=== PATIENT | male | born 1970 | race Caucasian/White ===

== ENCOUNTER 2017-06-04 20:48 | Emergency (ER) | payer BC ==
[2017-06-04] MEDS ORDERED: Aspirin 81 MG Tab.Chew PO ONE (20:56)
[2017-06-04] MEDS ORDERED: LORazepam 2 MG/ML SDV IVPUSH ONE (20:56)
[2017-06-04] MEDS ORDERED: Sodium Chloride 0.9% 1,000 ML IV ONE (20:56)
--- NOTE | 2017-06-04 20:57 | EDM.PDOC ---
ED HPI GENERAL MEDICAL PROBLEM - General Stated Complaint: CHEST PAIN Time Seen by Provider: 06/04/17 20:56 Source of Information: Reports: Patient - History of Present Illness INITIAL COMMENTS - FREE TEXT/NARRATIVE: HISTORY AND PHYSICAL: History of present illness: [Patient with history of anxiety arrives via EMS with left-sided reproducible chest pain rated 5 out of 10] not associated with shortness of breath or diaphoresis can reproduce pain with palpation of left lower rib margin as well as movement of the left arm. There is also tenderness over left deltoid and infraspinatus. No fever nausea vomiting chills sweats no shortness breath headache dizziness palpitation bowel or urine symptoms Review of systems: As per history of present illness and below otherwise all systems reviewed and negative. Past medical history: As per history of present illness and as reviewed below otherwise noncontributory. Surgical history: As per history of present illness and as reviewed below otherwise noncontributory. Social history: No reported history of drug or alcohol abuse. Family history: As per history of present illness and as reviewed below otherwise noncontributory. Physical exam: HEENT: Atraumatic, normocephalic, pupils reactive, negative for conjunctival pallor or scleral icterus, mucous membranes moist, throat clear, neck supple, nontender, trachea midline. Lungs: Clear to auscultation, breath sounds equal bilaterally, chest nontender. Heart: S1S2, regular, negative for clicks, rubs, or JVD. Abdomen: Soft, nondistended, nontender. Negative for masses or hepatosplenomegaly. Negative for costovertebral tenderness. Pelvis: Stable nontender. Genitourinary: Deferred. Rectal: Deferred. Extremities: Atraumatic, negative for cords or calf pain. Neurovascular unremarkable. Neuro: Awake, alert, oriented. Cranial nerves II through XII unremarkable. Cerebellum unremarkable. Motor and sensory unremarkable throughout. Exam nonfocal. Diagnostics: [Lab as below EKG Chest 1 view ] Therapeutics: []1 L normal saline bolus Ativan 1 mg IV Aspirin 324 mg chewable Insulin 10 mg IV Metformin 500 mg by mouth twice a day #60 no refill Lisinopril 20 mg by mouth daily #30 no refill Ativan 0.5 mg by mouth twice a day when necessary anxiety #10 no refill Impression: Anxiety about health [Reproducible chest wall pain/muscle spasm Hyperglycemia/new onset diabetes] Definitive disposition and diagnosis as appropriate pending reevaluation and review of above. Left Chest Pain Score (Numeric/FACES): 5 - Related Data Allergies Allergy/AdvReac Type Severity Reaction Status Date / Time No Known Allergies Allergy Verified 06/04/17 20:58 Home Meds: Home Meds Sertraline HCl [Zoloft] 50 mg PO DAILY 03/10/14 [History] Social & Family History - Tobacco Use Smoking Status *Q: Never Smoker Second Hand Smoke Exposure: No - Alcohol Use Days Per Week of Alcohol Use: 0 - Recreational Drug Use Recreational Drug Use: No ED ROS GENERAL - Review of Systems Review Of Systems: ROS reveals no pertinent complaints other than HPI. ED EXAM, GENERAL - Physical Exam Exam: See Below Course - Vital Signs Last Recorded V/S: Last Vital Signs Temp 97.8 F 06/04/17 20:55 Pulse 92 06/04/17 21:36 Resp 14 06/04/17 21:36 BP 136/96 H 06/04/17 21:36 Pulse Ox 90 L 06/04/17 21:36 - Orders/Labs/Meds Orders: Active Orders 24 hr Category Date Time Status EKG Documentation Completion [RC] STAT Care 06/04/17 20:56 Active Chest 1V Frontal [CR] Stat Exams 06/04/17 20:56 Taken Labs: Laboratory Tests 06/04/17 06/04/17 06/04/17 Range/Units 21:11 21:11 21:11 WBC 7.57 (4.0-11.0) K/uL RBC 5.57 (4.50-5.90) M/uL Hgb 17.0 (13.0-17.0) g/dL Hct 47.4 (38.0-50.0) % MCV 85.1 (80.0-98.0) fL MCH 30.5 (27.0-32.0) pg MCHC 35.9 (31.0-37.0) g/dL RDW Std Deviation 41.6 (28.0-62.0) fl RDW Coeff of Tono 14 (11.0-15.0) % Plt Count 176 (150-400) K/uL MPV 10.40 (7.40-12.00) fL Neut % (Auto) 55.9 (48.0-80.0) % Lymph % (Auto) 32.8 (16.0-40.0) % [place] % (Auto) 7.8 (0.0-15.0) % Eos % (Auto) 3.2 (0.0-7.0) % Baso % (Auto) 0.3 (0.0-1.5) % Neut # (Auto) 4.2 (1.4-5.7) K/uL Lymph # (Auto) 2.5 H (0.6-2.4) K/uL [place] # (Auto) 0.6 (0.0-0.8) K/uL Eos # (Auto) 0.2 (0.0-0.7) K/uL Baso # (Auto) 0.0 (0.0-0.1) K/uL Nucleated RBC % 0.0 /100WBC Nucleated RBCs # 0 K/uL Sodium 135 L (136-146) mmol/L Potassium 3.8 (3.5-5.1) mmol/L Chloride 102 (98-110) mmol/L Carbon Dioxide 21 (21-31) mmol/L BUN 13 (6.0-23.0) mg/dL Creatinine 1.2 (0.6-1.5) mg/dL Est Cr Clr Drug Dosing TNP Estimated GFR (MDRD) > 60.0 ml/min Glucose 381 H (60-110) mg/dL POC Glucose (60-110) mg/dL Calcium 9.6 (8.8-10.8) mg/dL Total Bilirubin 0.7 (0.1-1.5) mg/dL AST 15 (5-40) IU/L ALT 34 (8-54) IU/L Alkaline Phosphatase 99 (40-150) Creatine Kinase 50 (9-236) IU/L CK-MB (CK-2) 1.0 (0-6.6) ng/ml Troponin I < 0.10 (0.0-0.29) NG/ML Total Protein 7.5 (6.0-8.0) g/dL Albumin 3.7 (3.5-5.0) g/dL Globulin 3.8 H (2.0-3.5) g/dL Albumin/Globulin Ratio 1.0 L (1.3-2.8) Amylase 41 (10-90) U/L Lipase 42 (7-80) U/L 06/04/17 Range/Units 22:53 WBC (4.0-11.0) K/uL RBC (4.50-5.90) M/uL Hgb (13.0-17.0) g/dL Hct (38.0-50.0) % MCV (80.0-98.0) fL MCH (27.0-32.0) pg MCHC (31.0-37.0) g/dL RDW Std Deviation (28.0-62.0) fl RDW Coeff of Tono (11.0-15.0) % Plt Count (150-400) K/uL MPV (7.40-12.00) fL Neut % (Auto) (48.0-80.0) % Lymph % (Auto) (16.0-40.0) % [place] % (Auto) (0.0-15.0) % Eos % (Auto) (0.0-7.0) % Baso % (Auto) (0.0-1.5) % Neut # (Auto) (1.4-5.7) K/uL Lymph # (Auto) (0.6-2.4) K/uL [place] # (Auto) (0.0-0.8) K/uL Eos # (Auto) (0.0-0.7) K/uL Baso # (Auto) (0.0-0.1) K/uL Nucleated RBC % /100WBC Nucleated RBCs # K/uL Sodium (136-146) mmol/L Potassium (3.5-5.1) mmol/L Chloride (98-110) mmol/L Carbon Dioxide (21-31) mmol/L BUN (6.0-23.0) mg/dL Creatinine (0.6-1.5) mg/dL Est Cr Clr Drug Dosing Estimated GFR (MDRD) ml/min Glucose (60-110) mg/dL POC Glucose 206 H (60-110) mg/dL Calcium (8.8-10.8) mg/dL Total Bilirubin (0.1-1.5) mg/dL AST (5-40) IU/L ALT (8-54) IU/L Alkaline Phosphatase (40-150) Creatine Kinase (9-236) IU/L CK-MB (CK-2) (0-6.6) ng/ml Troponin I (0.0-0.29) NG/ML Total Protein (6.0-8.0) g/dL Albumin (3.5-5.0) g/dL Globulin (2.0-3.5) g/dL Albumin/Globulin Ratio (1.3-2.8) Amylase (10-90) U/L Lipase (7-80) U/L Meds: Medications Discontinued Medications Generic Name Dose Route Start Last Admin Trade Name Russell PRN Reason Stop Dose Admin Aspirin 324 mg 06/04/17 20:56 06/04/17 21:33 Aspirin PO 06/04/17 20:57 324 mg ONETIME ONE Administration Sodium Chloride 1,000 mls @ 999 mls/hr 06/04/17 20:56 06/04/17 21:34 Normal Saline IV 06/04/17 21:56 999 mls/hr STAT ONE Administration Insulin Human Regular 10 unit 06/04/17 22:05 06/04/17 22:28 Novolin R IVPUSH 06/04/17 22:06 10 units ONETIME ONE Administration Protocol Lorazepam 1 mg 06/04/17 20:56 06/04/17 21:34 Ativan IVPUSH 06/04/17 20:57 1 mg ONETIME ONE Administration Departure - Departure Time of Disposition: 23:34 Disposition: Home, Self-Care 01 Condition: Good Clinical Impression: New onset type 2 diabetes mellitus, Hyperglycemia, Muscle spasm - Discharge Information Referrals: PCP,None [Primary Care Provider] - Additional Instructions: Medication as prescribed Return if symptoms persist or worsen or new concerning symptoms develop Follow-up with primary care within 2 weeks for medication adjustment and referral for diet prevocational/rehabilitation counselor and diabetes education And continued management [facility] [address] [place] [id number] The following information is given to patients seen in the emergency department who are being discharged to home. This information is to outline your options for follow-up care. We provide all patients seen in our emergency department with a follow-up referral. The need for follow-up, as well as the timing and circumstances, are variable depending upon the specifics of your emergency department visit. If you don't have a primary care physician on staff, we will provide you with a referral. We always advise you to contact your personal physician following an emergency department visit to inform them of the circumstance of the visit and for follow-up with them and/or the need for any referrals to a consulting specialist. The emergency department will also refer you to a specialist when appropriate. This referral assures that you have the opportunity for follow-up care with a specialist. All of these measure are taken in an effort to provide you with optimal care, which includes your follow-up. Under all circumstances we always encourage you to contact your private physician who remains a resource for coordinating your care. When calling for follow-up care, please make the office aware that this follow-up is from your recent emergency room visit. If for any reason you are refused follow-up, please contact the [facility] emergency department at and asked to speak to the emergency department charge nurse. - My Orders Last 24 Hours: My Active Orders 06/04/17 20:56 EKG Documentation Completion [RC] STAT Chest 1V Frontal [CR] Stat - Assessment/Plan Last 24 Hours: My Active Orders 06/04/17 20:56 EKG Documentation Completion [RC] STAT Chest 1V Frontal [CR] Stat
[2017-06-04 22:01] LABS: CHLORIDE,CL 102 mmol/L (98-110); SODIUM,NA 135 mmol/L (136-146)
[2017-06-04] MEDS ORDERED: Insulin Regular, Human 100 Units/ML 10 ML Vial IVPUSH ONE (22:05)
[2017-06-05 01:51] VITALS: BP 126/96
--- NOTE | 2017-06-05 09:37 | CR ---
EXAM DATE: 06/04/17 PATIENT'S AGE: 46 Patient: CARO MORGAN Facility: [place], [place] Site . Site : [id number] Study: XRay Chest [id number] 9:38:16 PM Ordering Physician: Kade Mckeon Final Report: INDICATION: chest pain, sob Single AP view Findings: The lungs are clear. Pulmonary vascularity, mediastinum and cardiac silhouette are within normal limits. No effusions and no pneumothorax. Osseous structures appear unremarkable. Impression: No evidence of acute cardiopulmonary disease. Dictated by: Jeanmarie Enriquez MD @ 06/04/2017 21:50:38 (Electronic Signature) Report Signed by Proxy. [facility]ENTERAmanda
== END 2017-06-04 23:45 | disposition home or self-care (01) ==
LOC: MW.ED 20:48
DX: E11.65 Type 2 diabetes mellitus with hyperglycemia (principal); F41.9 Anxiety disorder, unspecified; R07.89 Other chest pain; M62.838 Other muscle spasm; Z79.899 Other long term (current) drug therapy
CPT/HCPCS: 36415; 71010; 80053; 82150; 82550; 82553; 82962; 83690; 84484; 85025; 93005; 96361; 96374; 96375; 99285; A9270; J1815; J2060; J7040; 99283